=== PATIENT | male | born 1960 | race Hispanic/Latino ===

== ENCOUNTER 2017-12-26 07:00 | Day surgery (SDC) | payer BC ==
[2017-12-26] MEDS ORDERED: LOPRESSOR PO NR (07:30)
[2017-12-26 08:02] LABS: BUN/Creatinine Ratio 24; Blood Urea Nitrogen 19 mg/dL (9-20); Calcium 9.1 mg/dL (8.4-10.2); Hemolysis Index 9
[2017-12-26] MEDS ORDERED: NITROSTAT SL NR (08:06)
[2017-12-26] MEDS ORDERED: LOPRESSOR IV NR (08:07)
[2017-12-26] MEDS ORDERED: ATROPINE 0.1% (CARDIAC) ONE (08:28)
[2017-12-26 09:09] VITALS: BP 110/65
--- NOTE | 2017-12-26 09:49 | Cat Scan Report ---
LIMITED CT OF THE CHEST PER CT CORONARY ANGIOGRAPHY PROTOCOL: Limited CT of the chest per CT coronary angiography protocol is submitted. The cardiac portion of the exam has been previously interpreted by the [employer]. The included portions of the lungs appear clear without evidence for nodule, mass or infiltrate. The included pleural spaces are clear. No mediastinal or hilar adenopathy is evident. Included upper abdomen and solid abdominal organs are grossly within normal limits. Unremarkable limited CT of the chest as noted.
--- NOTE | 2017-12-27 10:21 | Procedure Note ---
CARDIAC CT ORDERING PHYSICIAN: Dustin George MD INDICATION: Equivocal stress myocardial perfusion scan imaging result. PROCEDURE: The patient received 0.4 mg of nitroglycerin sublingual for coronary vasodilation prior to scanning. Using a 64-slice MDCT, low dose noncontrast calcium scoring CT was performed with prospective gating followed by contrast enhanced CTA at 0.6 mm thickness with retrospective gating and 100 mL Isovue 370 IV. The scan was performed from the isabella through the base of the heart. Data was reconstructed using multiple cardiac phases. FINDINGS: 1. The overall quality of the scan is good. 2. The total calcium score is 20.27 indicating mild plaque burden. The exact percentile ranking is 32%. 3. Right dominant circulation. 4. Left main originates from the left coronary cusp. 5. Left main showing no evidence of obstructive disease. 6. Proximal LAD showing no evidence of obstructive disease. 7. The first diagonal artery is a large caliber vessel showing no evidence of obstructive disease. 8. Mid LAD showing mild nonobstructive heterogeneous plaque. 9. Distal LAD is a small tapering caliber vessel with no evidence of obstructive disease. 10. Proximal circumflex shows no evidence of obstructive disease. 11. Mid circumflex shows evidence of mild nonobstructive calcified disease. 12. The obtuse marginal shows no evidence of obstructive disease. 13. The distal circumflex shows no evidence of obstructive disease. 14. The right coronary artery originates from the right coronary cusp. 15. Proximal right coronary artery shows no evidence of obstructive disease. 16. Mid right coronary artery shows no evidence of obstructive disease. 17. Distal right coronary artery shows no evidence of obstructive disease. 18. The posterior descending artery and the posterolateral ventricular branch show no evidence of obstructive disease. 19. Sinus of Valsalva measures 35.3 x 35.7 mm. 20. Ascending aorta measures 30.8 x 32.9 mm. 21. Descending aorta at the level of the diaphragm measures 20.6 x 22.6 mm with evidence of minimal calcifications. 22. The aortic valve is trileaflet. 23. The pulmonary artery is not well visualized. 24. The pulmonary veins are normal entering the left atrium. 25. The atrial appendage has no evidence of filling defect. 26. The left ventricle is normal in size with normal wall motion and normal left ventricular ejection fraction. 27. The pericardium shows no evidence of effusion. 28. The radiology overread of extracardiac structures. No abnormalities detected. IMPRESSION: 1. This is a good quality scan limited by mild slab artifact due to respiratory motion. 2. The calcium score is 20.27 indicating mild plaque burden with an exact percentile ranking of 32%. 3. Mild nonobstructive coronary artery disease noted in the mid LAD and the mid circumflex artery. 4. Normal visualized ascending and descending thoracic aorta. 5. Normal left ventricular size and systolic function with no evidence of regional wall motion abnormality. 6. No extracardiac abnormalities detected by Radiology overread. JOB# [id number]
== END 2017-12-26 09:16 | disposition home or self-care (01) ==
LOC: CATHLABREC 07:00 → EDSTATUS 07:45 → CATHLABREC 09:16
PROVIDERS: ATTEND Internal Medicine
DX: I25.10 Atherosclerotic heart disease of native coronary artery without angina pectoris (principal)
CPT/HCPCS: 36415; 75574; 80048; Q9967; J0461